=== PATIENT | female | born 1985 | race Caucasian/White ===

== ENCOUNTER → 2022-02-23 11:01 | Outpatient (BNVA) | payer OTHER, SELFPAY | PROVIDERS: Family Provider Family Medicine; PCP Family Medicine; Visit Provider Nurse Practitioner Family | DX: R45.86 Emotional lability (principal); R53.83 Other fatigue; E07.9 Disorder of thyroid, unspecified | CPT/HCPCS: 82672; 84144; 84403; 84439; 84443; 84481 ==